=== PATIENT | male | born 1990 | race Hispanic/Latino ===

== ENCOUNTER 2022-05-28 12:04 | Emergency (ER) | payer BC ==
[~2022-05-28] VITALS: Ht 167.6 cm; Wt 176.4 kg
[2022-05-28] MEDS ORDERED: SODIUM CHLORIDE 0.9% 1000ML 1,000 ML IV STA (12:40)
[2022-05-28] MEDS ORDERED: ALBUTEROL/IPRATROPIUM 3 ML NEB NEB ONE (12:45)
[2022-05-28 13:09] LABS: BASOPHILS % 0.3 % (0.0-1.0); EOSINOPHILS # (AUTO) 0.1 (0.0-0.4); EOSINOPHILS % 0.6 % (0.0-6.0); HEMATOCRIT 51.3 % (38.2-49.6); HEMOGLOBIN 15.4 g/dL (14.0-18.0); LYMPHOCYTES # (AUTO) 0.8 (1.0-3.2); LYMPHOCYTES % 8.6 % (18.0-39.1); MEAN CORPUSCULAR HEMOGLOBIN 28.1 pg (28-32); MEAN CORPUSCULAR VOLUME 93.6 fL (81-99); MONOCYTES # (AUTO) 0.8 (0.2-0.8); PLATELET COUNT 329 x10e3/uL (140-360); RED BLOOD COUNT 5.48 x10e6/uL (4.3-5.7); RED CELL DISTRIBUTION WIDTH 13.3 % (11.7-14.4)
[2022-05-28 13:29] LABS: B-TYPE NATRIURETIC PEPTIDE2 < 5.0 pg/mL (0-100)
[2022-05-28] MEDS ORDERED: ACETAMINOPHEN 325 MG TAB PO ONE (13:30)
[2022-05-28 13:37] LABS: ALBUMIN 3.9 g/dL (3.5-5.0); ANION GAP 14.8 mmol/L (8-16); CALCIUM 9.2 mg/dL (8.4-10.2); CREATININE, SERUM 1.14 mg/dL (0.72-1.25); POTASSIUM 3.8 mmol/L (3.5-5.1)
[2022-05-28 13:43] LABS: CREATINE KINASE MB 1.7 ng/mL (0-5.0)
[2022-05-28 14:35] LABS: INR 0.99; PROTHROMBIN TIME 13.3 seconds (11.9-14.5)
[2022-05-28] MEDS ORDERED: BENZONATATE100 MG PO (15:24)
[2022-05-28] MEDS ORDERED: VENTOLIN HFA18 GM INH (15:24)
[2022-05-28] MEDS ORDERED: AZITHROMYCIN250 MG PO (15:24)
[2022-05-28] MEDS ORDERED: PREDNISONE50 MG PO (15:24)
== END 2022-05-28 15:45 | disposition home or self-care (01) ==
LOC: ER 12:16
DX: R50.9 Fever, unspecified (principal); J06.9 Acute upper respiratory infection, unspecified; R06.02 Shortness of breath; Z20.822 Contact with and (suspected) exposure to COVID-19
CPT/HCPCS: 36415; 71046; 80053; 82550; 82553; 83605; 83880; 84484; 85025; 85379; 85610; 85730; 87040; 93005; 94640; 94799; 99284; J7030; U0002

== ENCOUNTER 2023-11-17 17:22 | Emergency (ER) | payer SELFPAY ==
[~2023-11-17] VITALS: Ht 167.6 cm; Wt 176.4 kg
[~2023-11-17 17:22] MED LIST: AZITHROMYCIN250 MG PO; BENZONATATE100 MG PO; PREDNISONE50 MG PO; VENTOLIN HFA18 GM INH
[2023-11-17 17:25] VITALS: PULSE 94; RESP 16; TEMP 97.1
[2023-11-17] MEDS: KETOROLAC TROMETHAMINE 30 MG/ML VIAL IM STA (18:20)
[2023-11-17] MEDS ORDERED: KETOROLAC TROMETHAMINE 30 MG/ML VIAL ONE (18:21)
[2023-11-17] MEDS ORDERED: KETOROLAC TROME10 MG PO (19:35)
[2023-11-17 19:36] VITALS: BP 149/90; PULSE 85; RESP 14; TEMP 97.8; O2SAT 98
== END 2023-11-17 19:35 | disposition home or self-care (01) ==
LOC: ER 17:56
DX: S76.312A Strain of muscle, fascia and tendon of the posterior muscle group at thigh level, left thigh, initial encounter (principal); X50.0XXA Overexertion from strenuous movement or load, initial encounter
CPT/HCPCS: 73552; 99283; J1885